=== PATIENT | female | born 1985 | race Asian ===

== ENCOUNTER 2018-11-02 22:12 | Emergency (ER) | payer OTHER ==
[~2018-11-02] VITALS: Ht 162.6 cm; Wt 62.6 kg
[2018-11-02] MEDS ORDERED: IV NS 0.9% 1,000 ML BAG IV ONE (22:30)
[2018-11-02 22:45] LABS: BASOPHILS # (AUTO) 0.1 /CMM (0.0-0.2); BASOPHILS % (AUTO) 0.7 % (0.0-2.0); EOSINOPHILS % (AUTO) 1.1 % (0.0-6.0); HEMATOCRIT 38 % (33-45); HEMOGLOBIN 13.1 g/dL (11.5-14.8); LYMPHOCYTES # (AUTO) 2.6 /CMM (0.8-4.8); MEAN CORPUSCULAR HGB CONC 34 g/dl (31.0-36.0); MEAN CORPUSCULAR VOLUME 94 fL (82-100); MONOCYTES # (AUTO) 0.4 /CMM (0.1-1.30); MONOCYTES % (AUTO) 4.6 % (2.0-12.0); NEUTROPHILS # (AUTO) 5.3 /CMM (1.8-8.9); NEUTROPHILS % (AUTO) 62.6 % (43.0-81.0); PLATELET COUNT (AUTO) 286 /CMM (150-450); RED BLOOD CELL COUNT(AUTO) 4.06 MIL/uL (4.0-5.2); WHITE BLOOD COUNT (AUTO) 8.5 K/uL (4.3-11.0)
[2018-11-02] MEDS ORDERED: ONDANSETRON HCL/PF - ER 4 MG/2 ML VIAL IV ONE (23:00)
[2018-11-02] MEDS ORDERED: MORPHINE SULFATE INJ 4 MG/ML DISP.SYRIN ONE (23:00)
[2018-11-02] MEDS ORDERED: MORPHINE SULFATE INJ 2 MG/ML DISP.SYRIN IV ONE (23:00)
[2018-11-02] MEDS ORDERED: ONDANSETRON HCL/PF 4 MG/2 ML VIAL ONE (23:00)
--- NOTE | 2018-11-02 23:30 | NUR ---
PELVIC EXAM DONE AT BEDSIDE WITH DR & RN TO ASSIST. ALSO AT BEDSIDE.
--- NOTE | 2018-11-02 23:30 | NUR ---
Pt BIB FAMILY & DUE TO HEAVY VAGINAL BLEEDING & ABD PAIN. WENT TO OBGYN THIS AM AND WAS TOLD SHE MISCARRIED. LMP 08/13/18. Pt BEING SEEN BY MD AT BEDSIDE. Pt IS A/OX4, VERBAL, ABLE TO MAKE NEES KNOWN. Pt IN BED. VS STABLE. WILL CONTINUE TO MONITOR Pt AND CARRY OUT MD ORDERS.
--- NOTE | 2018-11-02 23:45 | NUR ---
ALL ORDERED MEDS GIVEN
--- NOTE | 2018-11-02 23:45 | NUR ---
IV ACCESS STARTED ON RFA #20G
--- NOTE | 2018-11-03 00:22 | NUR ---
Patient discharged to home in stable condition. Written and verbal after care instructions given. Patient verbalizes understanding of instruction. Instructed pt not to drive. will be driving pt back home. IV access removed, secured with gauze and tape. No signs of bleeding noted. ID band removed. Pt left facility via wheelchair by staff, pt was safely transferred to car. No s/s of acute distress or sob noted. VS stable.
[2018-11-03 00:30] VITALS: BP 110/67
== END 2018-11-03 00:31 | disposition home or self-care (01) ==
LOC: ER 22:15
DX: O03.9 Complete or unspecified spontaneous abortion without complication (principal)
CPT/HCPCS: 36415; 76805; 84702; 85025; 86850; 96374; 96375; 99284; A6403; J2270; J7030; J2405